=== PATIENT | female | born 1960 | race African-American/Black ===

== ENCOUNTER 2017-06-05 07:20 | Emergency (ER) | payer OTHER ==
[~2017-06-05] VITALS: Ht 167.6 cm; Wt 140.0 kg
[2017-06-05] MEDS ORDERED: MORPHINE SULFATE 4 MG/ML CPJ (NOT FOR IM USE) IV STA (07:53)
[2017-06-05] MEDS ORDERED: SODIUM CHLORIDE 0.9% 1,000 ML IV ONE (07:53)
[2017-06-05] MEDS ORDERED: ONDANSETRON HCL 4MG/2ML VIAL IV STA (07:53)
[2017-06-05 08:12] LABS: BASOPHILS % 0.4 % (0.0-2.0); HEMATOCRIT. 34.8 % (36.0-48.0); HEMOGLOBIN. 11.6 g/dL (12.0-16.0); LYMPHOCYTES % 17.1 % (20.0-50.0); MEAN CORPUSCULAR HEMOGLOBIN 29.3 pg (28.0-32.0); MEAN CORPUSCULAR VOLUME 87.9 fL (81.0-99.0); MEAN PLATELET VOLUME 7.9 fl (7.4-10.4); MONOCYTES % 6.8 % (2.0-8.0); NEUTROPHILS % 74.7 % (40.0-76.0); PLATELET 333 x1000/uL (130-400); RED BLOOD CELL COUNT 3.96 mill/uL (4.2-5.4); RED CELL DISTRIBUTION WIDTH 15.9 % (11.6-14.6)
[2017-06-05 08:20] LABS: INR 1.2; PROTHROMBIN TIME 12.5 sec
[2017-06-05 08:28] LABS: CARBON DIOXIDE 27 mEq/L (21-32); CHLORIDE 103 mEq/L (98-107)
[2017-06-05] MEDS ORDERED: KETOROLAC 30MG/ML VIAL IV STA (10:11)
[2017-06-05] MEDS ORDERED: CLINDAMYCIN 600 MG in DEXTROSE 5% WATER 50 ML IV ONE (10:15)
[2017-06-05 12:53] VITALS: BP 117/67
== END 2017-06-05 12:56 | disposition home or self-care (01) ==
LOC: ER 07:47
DX: T81.4XXA Infection following a procedure, initial encounter (principal); Z90.710 Acquired absence of both cervix and uterus; Z88.0 Allergy status to penicillin; Z98.84 Bariatric surgery status; Y92.89 Other specified places as the place of occurrence of the external cause
CPT/HCPCS: 36415; 74176; 80053; 83690; 85025; 85610; 96361; 96365; 96375; 99285; J1885; J2270; J2405; J3490; J7030; Z7610; J7060